=== PATIENT | female | born 1990 | race American Indian/Alaskan Native ===

== ENCOUNTER 2019-12-07 10:00 | Emergency (ER) | payer SELFPAY ==
[2019-12-07 10:17] VITALS: BP 118/72
--- NOTE | 2019-12-07 11:38 | Emergency Department Report ---
ED ENT HPI - General Chief complaint: Sore Throat Stated complaint: HARD TO SWALLON, VOMITTING Time Seen by Provider: 12/07/19 11:18 Source: patient Mode of arrival: Ambulatory Limitations: No Limitations - History of Present Illness Initial comments: reports pain and swelling to L lower jaw since last night reports has happened once before due to a salivary duct stone denies any other complaints MD complaint: difficulty swallowing -: Gradual, days(s) (1) Location: throat Severity: moderate Severity scale (0 -10): 6 Quality: aching Consistency: constant Improves with: none Worsens with: none Context- Dental: history of dental caries Associated Symptoms: pain with swallowing, sore throat. denies: fever - Related Data Previous Rx's Medication Instructions Recorded Last Taken Type Clindamycin [Clindamycin CAP] 450 mg PO Q8HR #90 capsule 12/07/19 Unknown Rx Ibuprofen [Motrin] 600 mg PO Q8H PRN #30 tablet 12/07/19 Unknown Rx Allergies Allergy/AdvReac Type Severity Reaction Status Date / Time No Known Allergies Allergy Unverified 12/07/19 10:04 ED Dental HPI - General Chief complaint: Sore Throat Stated complaint: HARD TO SWALLON, VOMITTING Time Seen by Provider: 12/07/19 11:18 Source: patient Mode of arrival: Ambulatory Limitations: No Limitations - Related Data Previous Rx's Medication Instructions Recorded Last Taken Type Clindamycin [Clindamycin CAP] 450 mg PO Q8HR #90 capsule 12/07/19 Unknown Rx Ibuprofen [Motrin] 600 mg PO Q8H PRN #30 tablet 12/07/19 Unknown Rx Allergies Allergy/AdvReac Type Severity Reaction Status Date / Time No Known Allergies Allergy Unverified 12/07/19 10:04 ED Review of Systems ROS: Stated complaint: HARD TO SWALLON, VOMITTING Other details as noted in HPI Comment: All other systems reviewed and negative ENT: as per HPI ED Past Medical Hx - Past Medical History Previous Medical History?: No - Surgical History Past Surgical History?: Yes Additional Surgical History: D & C - Social History Smoking Status: Never Smoker Substance Use Type: Marijuana - Medications Home Medications: Home Medications Medication Instructions Recorded Confirmed Last Taken Type Clindamycin [Clindamycin CAP] 450 mg PO Q8HR #90 capsule 12/07/19 Unknown Rx Ibuprofen [Motrin] 600 mg PO Q8H PRN #30 tablet 12/07/19 Unknown Rx ED Physical Exam - General Limitations: No Limitations General appearance: alert, in no apparent distress - Head Head exam: Present: atraumatic, normocephalic - Eye Eye exam: Present: normal appearance - ENT ENT exam: Present: mucous membranes moist, other (mild fullness to L mandibular area, large nena tooth 17, no ludwigs, uvula midline w/o edema) - Neck Neck exam: Present: normal inspection - Respiratory Respiratory exam: Present: normal lung sounds bilaterally. Absent: respiratory distress - Cardiovascular Cardiovascular Exam: Present: regular rate, normal rhythm. Absent: systolic murmur, diastolic murmur, rubs, gallop - GI/Abdominal GI/Abdominal exam: Present: soft, normal bowel sounds - Extremities Exam Extremities exam: Present: normal inspection - Back Exam Back exam: Present: normal inspection - Neurological Exam Neurological exam: Present: alert, oriented X3 - Psychiatric Psychiatric exam: Present: normal affect, normal mood - Skin Skin exam: Present: warm, dry, intact, normal color. Absent: rash ED Course Vital Signs 12/07/19 10:05 Temperature 99.3 F Pulse Rate 79 Respiratory 16 Rate Blood Pressure 118/72 O2 Sat by Pulse 100 Oximetry ED Medical Decision Making - Medical Decision Making L mandibular fullness able to swallow and oropharynx normal no trismus no drooling no signs of ludwigs angina risk of radiation felt higher than any benefit of CT imaging at this time dental abscess vs possible sialoadenitis will do abx with dental/ent follow up return precautions given - Differential Diagnosis dental abscess vs sialoadenitis Critical care attestation.: If time is entered above; I have spent that time in minutes in the direct care of this critically ill patient, excluding procedure time. ED Disposition Clinical Impression: Facial edema Disposition: DC-01 TO HOME OR SELFCARE Is pt being admited?: No Condition: Good Instructions: Dental Abscess (ED), Sialoadenitis (ED) Prescriptions: Clindamycin [Clindamycin CAP] 450 mg PO Q8HR #90 capsule Ibuprofen [Motrin] 600 mg PO Q8H PRN #30 tablet PRN Reason: Pain Referrals: BERE EVANGELISTA MD [Staff Physician] - 3-5 Days Time of Disposition: 11:38
[2019-12-07] MEDS ORDERED: CLINDAMYCIN 150 MG CAP PO ONE (11:44)
[2019-12-07] MEDS ORDERED: CLINDAMYCIN 150 MG/ML VIAL 6 ML ONE (12:05)
[2019-12-07] MEDS ORDERED: CLINDAMYCIN 150 MG/ML VIAL 6 ML IM ONE (12:09)
== END 2019-12-07 12:29 | disposition home or self-care (01) ==
LOC: ED 10:00
DX: R60.0 Localized edema (principal); F12.10 Cannabis abuse, uncomplicated; Z79.899 Other long term (current) drug therapy
CPT/HCPCS: 96372; 99281